=== PATIENT | female | born 2000 | race Caucasian/White ===

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

== ENCOUNTER 2021-06-07 06:32 | Emergency (ER) | payer MEDICAID ==
[~2021-06-07] VITALS: Ht 165.1 cm; Wt 105.0 kg
[~2021-06-07 06:32] MED LIST changes: +IBUP-1222 PO
--- NOTE | 2021-06-07 06:41 | NUR ---
CC OF "BLOODY VOMIT AND ABD PAIN IN MY RIGHT SIDE THAT GOES TO MY SPINE, KAZ ALSO HAD SOME BLOOD IN MY STOOL, ITS BRIGHT RED". DENIES NSAID USE AND ETOH USE. PAIN SINCE 0100 AM. NO HX OF SAME. +DIZZYNESS.
--- NOTE | 2021-06-07 06:50 | NUR ---
report given to [facility]
--- NOTE | 2021-06-07 06:50 | NUR ---
bedside report received from [facility] bent[facility]
[2021-06-07] MEDS ORDERED: PANTOPRAZOLE 40 MG IV ONE (06:58)
[2021-06-07] MEDS ORDERED: ONDANSETRON 2MG/ML, 2ML ONE (06:58)
[2021-06-07] MEDS ORDERED: HYDROmorphone 1 MG/ML, 1ML INJ ONE (06:58)
[2021-06-07] MEDS ORDERED: ONDANSETRON 2MG/ML, 2ML IVPush ONE (07:00)
[2021-06-07] MEDS ORDERED: PANTOPRAZOLE 40 MG IV IV ONE (07:00)
[2021-06-07] MEDS ORDERED: SODIUM CHLORIDE 0.9% 1,000ML IVBOLUS ONE (07:00)
[2021-06-07] MEDS ORDERED: HYDROmorphone 1 MG/ML, 1ML INJ IV ONE ×2 (07:00→09:00)
[2021-06-07] MEDS ORDERED: SODIUM CHLORIDE FLUSH 10ML SYR IVF ONE (07:00)
--- NOTE | 2021-06-07 07:13 | NUR ---
pt medicated per order, tolerated well. fluids infusing, xr at bedside, nadn.
--- NOTE | 2021-06-07 07:20 | NUR ---
pt to ct
[2021-06-07 07:23] LABS: BASOPHILS % (AUTO) 1 % (0-1); EOSINOPHILS % (AUTO) 3 % (1-7); LYMPHOCYTES % (AUTO) 16 % (22-44); MEAN CORPUSCULAR HEMOGLOBIN 28.7 pg (27.0-34.8); MEAN PLATELET VOLUME 9.2 fL (7.4-10.4); MONOCYTES % (AUTO) 7 % (2-9); NEUTROPHILS % (AUTO) 74 % (42-75); PLATELET COUNT 241 x10^3/uL (130-400); RED BLOOD COUNT 4.39 x10^6/uL (3.82-5.3); RED CELL DISTRIBUTION WIDTH 15.6 % (9.6-15.2)
[2021-06-07 07:30] LABS: MICROSCOPIC INDICATED
[2021-06-07 07:31] LABS: ALANINE AMINOTRANSFERASE 19 U/L (12-78); ALBUMIN 3.2 g/dL (3.4-5.0); ANION GAP 5 mmol/L (5-15); CALCIUM 8.7 mg/dL (8.5-10.1); CHLORIDE 111 mmol/L (98-107); CREATININE 0.73 mg/dL (0.55-1.02)
[2021-06-07 07:36] LABS: ALKALINE PHOSPHATASE 61 U/L (45-117); BILIRUBIN,TOTAL 0.3 mg/dL (0.2-1.0); TOTAL PROTEIN 6.6 g/dL (6.4-8.2)
--- NOTE | 2021-06-07 08:25 | NUR ---
pt remedicated for pain per order, tolerarated well. pt a&o, resps even and unlabored, call light in reach, cheryl
--- NOTE | 2021-06-07 08:53 | NUR ---
pt to ct
[2021-06-07] MEDS ORDERED: KETOROLAC 30 MG/1 ML IVPush ONE (09:00)
--- NOTE | 2021-06-07 09:01 | NUR ---
pt back from ct, a&o, resps even and unlabored, cheryl. call light in reach
[2021-06-07 10:30] VITALS: BP 104/51
--- NOTE | 2021-06-07 11:19 | NUR ---
piv DC'D WITH TIP INTACT, DISCHARGE INSTRUCTIONS REVIEWED, PT VERBALIZED UNDERSTANDING. AMBULATORY TO DISCHARGE DESK WITH STEADY GAIT.
== END 2021-06-07 11:22 | disposition home or self-care (01) ==
LOC: ED 06:51
DX: R10.11 Right upper quadrant pain (principal); R10.31 Right lower quadrant pain; R11.2 Nausea with vomiting, unspecified; K62.5 Hemorrhage of anus and rectum; Z87.891 Personal history of nicotine dependence
CPT/HCPCS: 36415; 74021; 74176; 80053; 81001; 83690; 84703; 85025; 87086; 96361; 96374; 96375; 96376; 99285; C9113; J1170; J2405; J7030